=== PATIENT | female | born 2000 | race Caucasian/White ===

== ENCOUNTER → 2018-11-24 | Outpatient (CLI) | payer OTHER ==
--- NOTE | 2018-11-24 12:15 | USB ---
Reason for exam: clinical finding. Physical Findings: Nurse did not find any significant physical abnormalities on exam. US Breast RT Right complete breast ultrasound includes all four quadrants, the retroareolar region and axilla. Finding demonstrates no cystic or solid lesion seen. No suspicious sonographic finding. These results were verbally communicated with the patient and result sheet given to the patient on 11/24/18. ASSESSMENT: Negative, BI-RAD 1 RECOMMENDATION: Routine screening mammogram of both breasts at age 38. (or sooner if clinically indicated) Manage on a clinical basis with regard to chronic right nonfocal breast pain x 2 years.
== END ==
LOC: RADUSWWP 09:31
PROVIDERS: ATTEND Obstetrics & Gynecology Obstetrics
DX: N64.4 Mastodynia (principal)

== ENCOUNTER 2021-04-23 00:54 | Observation (INO) | payer OTHER ==
[2021-04-23] MEDS ORDERED: SODIUM CHLORIDE 0.9% 1,000 ML IV STA ×2 (01:02→02:52)
--- NOTE | 2021-04-23 01:03 | ED ---
Overdose HPI - General Stated Complaint: poss overdose Time Seen by Provider: 04/23/21 01:01 - Related Data Allergies Allergy/AdvReac Type Severity Reaction Status Date / Time No Known Allergies Allergy Verified 04/23/21 01:07 Review of Systems ROS Statement: Those systems with pertinent positive or pertinent negative responses have been documented in the HPI. ROS Other: All systems not noted in ROS Statement are negative. Course Vital Signs 04/23/21 01:02 Pulse Rate 69 Respiratory 14 Rate Blood Pressure 101/87 O2 Sat by Pulse 100 Oximetry Medical Decision Making - Lab Data Result diagrams: 04/23/21 01:29 04/23/21 01:29 Lab Results 04/23/21 04/23/21 Range/Units 01:29 01:29 WBC 6.7 (3.8-10.6) k/uL RBC 4.27 (3.80-5.40) m/uL Hgb 13.5 (11.4-16.0) gm/dL Hct 39.3 (34.0-46.0) % MCV 92.0 (80.0-100.0) fL MCH 31.7 (25.0-35.0) pg MCHC 34.5 (31.0-37.0) g/dL RDW 13.4 (11.5-15.5) % Plt Count 288 (150-450) k/uL MPV 7.2 Neutrophils % 57 % Lymphocytes % 34 % Monocytes % 4 % Eosinophils % 1 % Basophils % 1 % Neutrophils # 3.8 (1.3-7.7) k/uL Lymphocytes # 2.3 (1.0-4.8) k/uL Monocytes # 0.3 (0-1.0) k/uL Eosinophils # 0.1 (0-0.7) k/uL Basophils # 0.1 (0-0.2) k/uL Sodium 140 (137-145) mmol/L Potassium 3.5 (3.5-5.1) mmol/L Chloride 107 (98-107) mmol/L Carbon Dioxide 18 L (22-30) mmol/L Anion Gap 15 mmol/L BUN 5 L (7-17) mg/dL Creatinine 0.54 (0.52-1.04) mg/dL Est GFR (CKD-EPI)AfAm >90 (>60 ml/min/1.73 sqM) Est GFR (CKD-EPI)NonAf >90 (>60 ml/min/1.73 sqM) Glucose 114 H (74-99) mg/dL Calcium 8.6 (8.4-10.2) mg/dL Total Bilirubin 0.6 (0.2-1.3) mg/dL AST 36 (14-36) U/L ALT 22 (4-34) U/L Alkaline Phosphatase 65 (38-126) U/L Total Protein 7.9 (6.3-8.2) g/dL Albumin 4.7 (3.5-5.0) g/dL Lipase 39 (23-300) U/L Salicylates <1.0 mg/dL Acetaminophen <10.0 ug/mL Serum Alcohol 254 H* mg/dL - EKG Data -: EKG Interpreted by Me (EKG is bradycardia 56 CO 108 QRS 94 QTC 446) Disposition Clinical Impression: Alcoholic intoxication, Altered mental status Disposition: ADMITTED IP TO THIS HOSP Condition: Good Is patient prescribed a controlled substance at d/c from ED?: No Referrals: None,Stated [Primary Care Provider] - 1-2 days
[2021-04-23 01:48] LABS: Basophils # (A) 0.1 k/uL (0-0.2); Basophils % (A) 1 %; Eosinophils # (A) 0.1 k/uL (0-0.7); Eosinophils % (A) 1 %; HCT 39.3 % (34.0-46.0); HGB 13.5 gm/dL (11.4-16.0); Lymphocytes # (A) 2.3 k/uL (1.0-4.8); Lymphocytes % (A) 34 %; MCH 31.7 pg (25.0-35.0); MCHC 34.5 g/dL (31.0-37.0); Mean Platelet Volume 7.2; Monocytes # (A) 0.3 k/uL (0-1.0); Monocytes % (A) 4 %; Neutrophils # (A) 3.8 k/uL (1.3-7.7); Neutrophils % (A) 57 %; Platelet Count 288 k/uL (150-450); RBC 4.27 m/uL (3.80-5.40); RDW 13.4 % (11.5-15.5); WBC 6.7 k/uL (3.8-10.6)
[2021-04-23 02:01] LABS: ALT 22 U/L (4-34); AST 36 U/L (14-36); Acetaminophen <10.0 ug/mL; African American GFR (CKD) >90 (>60 ml/min/1.73 sqM); Albumin 4.7 g/dL (3.5-5.0); Alkaline Phosphatase 65 U/L (38-126); Anion Gap 15 mmol/L; Blood Urea Nitrogen 5 mg/dL (7-17); Calcium 8.6 mg/dL (8.4-10.2); Carbon Dioxide 18 mmol/L (22-30); Chloride 107 mmol/L (98-107); Glucose 114 mg/dL (74-99); Lipase 39 U/L (23-300); Non-African American GFR(CKD) >90 (>60 ml/min/1.73 sqM); Potassium 3.5 mmol/L (3.5-5.1); Salicylate <1.0 mg/dL; Sodium 140 mmol/L (137-145); Total Bilirubin 0.6 mg/dL (0.2-1.3); Total Protein 7.9 g/dL (6.3-8.2)
[2021-04-23 02:06] LABS: Alcohol 254 mg/dL
--- NOTE | 2021-04-23 02:47 | CT ---
EXAMINATION TYPE: CT brain cspine wo con DATE OF EXAM: 04/23/2021 COMPARISON: None HISTORY: Overdose CT DLP: 1302.2 mGycm Automated exposure control for dose reduction was used. Ventricles and sulci appear normal. There is no mass effect nor midline shift. There is no sign of in tracranial hemorrhage. No cerebral edema. The cervical vertebra have normal spacing and alignment. Posterior elements are intact. Facet joints are intact. Prevertebral soft tissues are intact. IMPRESSION: Negative CT scan of the cervical spine. Negative CT scan of the brain.
[2021-04-23] MEDS ORDERED: DEXTROSE 5%-0.45% NACL 1,000 ML IV ONE (02:52)
[2021-04-23] MEDS ORDERED: ONDANSETRON 4 MG/2 ML VIAL IVP PRN (02:53)
[2021-04-23] MEDS ORDERED: LORazepam 2 MG/ML INJ IV PRN (02:53)
[2021-04-23] MEDS ORDERED: NALOXONE 0.4 MG/ML 1 ML VIAL IV PRN (02:53)
--- NOTE | 2021-04-23 03:58 | P.HPIM ---
History of Present Illness H&P Date: 04/23/21 Patient [id number] female with a PMH of depression who presented to the emergency room with alcohol intoxication. The patient reports that she was out with her friends and had multiple shots and mixed drinks, after which she became severely intoxicated, at which point her friends called her mother who picked her up and brought her to the emergency room. The patient was tearful at time of interview as she was concerned regarding her excessive drinking episode. She reported feeling and denied any active complaints. She denied expressing chest discomfort, shortness of breath, fever, chills, cough, nausea, vomiting, abdominal pain, diarrhea. She reports drinking only every other weekend with her friends. Alcohol level in the emergency room was 254. Review of systems: Pertinent positives and negatives as discussed in HPI, a complete review of systems was performed and all other systems are negative. Physical examination: General: non toxic, no distress, appears at stated age, normal weight Derm: no unusual rashes/lesions no unusual ecchymoses, warm, dry Head: atraumatic, normocephalic, symmetric Eyes: EOMI, no lid lag, anicteric sclera, pupils equal round reactive to light ENT: Nose and ears atraumatic, no thrush, no pharyngeal erythema Neck: No thyromegaly, no cervical lymphadenopathy, trachea midline, supple Mouth: no lip lesion, mucus membranes moist Cardiovascular: S1S2 reg, no murmur, positive posterior tibial pulse bilateral, no edema, capillary refill less than 2 seconds Lungs: CTA bilateral, no rhonchi, no rales , no accessory muscle use Abdominal: soft, nontender to palpation, no guarding, no appreciable organomegaly, normal bowel sounds Ext: no gross muscle atrophy, muscle strength 5 out of 5 in all 4 extremities grossly, no contractures, Neuro: CN II-XI grossly intact, light touch intact all 4 extremities, finger to nose within normal limits, Psych: Alert, oriented, appropriate affect Assessment/plan Alcohol intoxication -C/w IVFs -Fall precautions -Denied taking any additional substances DVT prophylaxis -Heparin subq The patient is admitted with an anticipated less than 2 midnight stay for evaluation of EtOH intoxication CODE STATUS: Full Code Discussed with: Patient Anticipated discharge date: in am Anticipated discharge place: Home Past Medical History Past Medical History: No Reported History Past Surgical History: No Surgical Hx Reported Past Psychological History: Anxiety, Depression Smoking Status: Never smoker Past Alcohol Use History: Heavy Past Drug Use History: Marijuana Medications and Allergies Allergies Allergy/AdvReac Type Severity Reaction Status Date / Time No Known Allergies Allergy Verified 04/23/21 01:07 Physical Exam Vitals: Vital Signs Pulse Resp BP Pulse Ox 04/23/21 01:02 69 14 101/87 100 Intake and Output 04/22/21 04/22/21 04/23/21 14:59 22:59 06:59 Other: Weight 63.503 kg Results CBC & Chem 7: 04/23/21 01:29 04/23/21 01:29 Labs: Abnormal Lab Results - Last 24 Hours (Table) 04/23/21 Range/Units 01:29 Carbon Dioxide 18 L (22-30) mmol/L BUN 5 L (7-17) mg/dL Glucose 114 H (74-99) mg/dL Serum Alcohol 254 H* mg/dL
[2021-04-23] MEDS ORDERED: HEPARIN SODIUM,PORCINE/PF 5,000 UNIT/0.5 ML SYRINGE SQ SCH (08:00)
[2021-04-23 08:42] VITALS: BP 129/88; PULSE 76; RESP 18; TEMP 98.6
[2021-04-23] MEDS ORDERED: PANTOPRAZOLE 40 MG/10 ML VIAL IV SCH (09:00)
--- NOTE | 2021-04-23 12:40 | P.DS ---
Providers Date of admission: 04/23/21 02:53 Expected date of discharge: 04/23/21 Attending physician: Dahlia Parada MD Primary care physician: Stated None Hospital Course: Discharge Diagnosis: EtOH intoxication Alcohol abuse Depression Hospital Course: Patient is a very pleasant 20-year-old female with a past medical history of depression who presented to the hospital for alcohol intoxication. Patient reports that she does not drink on a daily basis and only drinks a couple of times a month may be on the weekend, but states she was out with her friends from work and had multiples along with mixed drinks resulting in significant intoxication. Patient's friends called the patient's mother picked her up and was very worried about her condition so she brought her to the emergency department for evaluation. In the emergency department patient was fully evaluated. Normal sinus rhythm at 56 bpm with no noted T-wave or ST abnormalities. A CT head and cervical spine was completed negative for acute process. Labs drawn revealing unremarkable CBC and CMP. Salicylates negative at less than 1.0, acetaminophen negative at less than 10.0, and a highly elevated serum alcohol level of 254. Patient was placed on continuous IV hydration and admitted under our services. Patient monitored overnight and until clinically sober. Once sober, patient was evaluated again and again she confirmed that she does not drink often and does not need any outpatient resources for alcohol use/abuse. Patient denied having any thoughts of self-harm or harm to others. Patient requesting discharge and called her mother for a ride home. Patient is medically stable for discharge at this time. Strongly educated on risks of alcohol abuse. Patient states she will not be drinking for a very long time. Physical examination: Vital signs reviewed and stable. General: Nontoxic, no distress and appears stated age. Derm: Skin warm and dry, normal coloration for ethnicity. Head: Atraumatic, normocephalic and symmetric. Eyes: EOMs intact, no lid lag, and anicteric sclera Mouth: no lip lesions, mucus membranes moist Cardiovascular: regular rate and rhythm with normal S1S2, no murmur, positive posterior tibial pulses bilaterally, and cap refill < 2 seconds. Lungs: Respirations even, regular, and unlabored on room air. Lungs CTA bilaterally, no rhonchi, no rales, no wheezing, and no accessory muscle usage. Abdominal: soft, nontender to palpation, no guarding, no appreciable organomegaly Ext: ROM intact. No gross muscle atrophy, no edema, no contractures Neuro: Speech clear, face symmetrical and CN II-XII grossly intact with no noted focal neuro deficits Psych: Alert and oriented to person, place, time, and situation. Appropriate and pleasant affect. A total of 31 minutes of time were spent preparing this complex discharge summary. Ronald Elaine NP rendered care for this patient independently, reviewed the findings and plan as documented in the note above. I did not physically speak with or examine the patient on this date. Patient Condition at Discharge: Good Plan - Discharge Summary Discharge Rx Participant: No New Discharge Prescriptions: Continue buPROPion XL [Wellbutrin XL] 150 mg PO DAILY Discharge Medication List buPROPion XL [Wellbutrin XL] 150 mg PO DAILY 04/23/21 [History] Follow up Appointment(s)/Referral(s): Jonathon Juárez MD [REFERRING] - As Needed Activity/Diet/Wound Care/Special Instructions: follow up as needed Discharge/Stand Alone Forms: AA Meetings [place], Outpatient Counseling Discharge Disposition: HOME SELF-CARE
== END 2021-04-23 14:10 | disposition home or self-care (01) ==
LOC: EC 00:54 → 6NMEDSUR 02:53
PROVIDERS: ADMIT Internal Medicine; ATTEND Internal Medicine
DX: F10.129 Alcohol abuse with intoxication, unspecified (principal); F32.A Depression, unspecified; F41.9 Anxiety disorder, unspecified; R00.1 Bradycardia, unspecified; Y90.8 Blood alcohol level of 240 mg/100 ml or more; Z71.41 Alcohol abuse counseling and surveillance of alcoholic
CPT/HCPCS: 96372; 96374; 96361; 99285; 36415; 93005; 80053; 83690; 85025; 80143; 80320; 80179; 72125; 70450; G0378; C9113; J1644

== ENCOUNTER → 2024-01-27 | Outpatient (CLI) | payer OTHER ==
--- NOTE | 2024-01-27 17:05 | XR ---
EXAMINATION TYPE: XR pelvis AP view DATE OF EXAM: 01/27/2024 4:47 PM COMPARISON: None CLINICAL INDICATION: Female, 23 years old with history of SLIP AND FALL; pain [facility] TECHNIQUE: XR pelvis AP view, examined in a single projection. FINDINGS: There is no evidence of fracture or dislocation. There is no soft tissue abnormality. No a bnormal calcifications are present. The spine appears intact. The hips appear intact. No significant degeneration. IMPRESSION: No acute osseous pathology. [facility], , 01/27/2024 5:03 PM
--- NOTE | 2024-01-27 17:06 | XR ---
EXAMINATION TYPE: XR lumbar spine 2 or 3V DATE OF EXAM: 01/27/2024 4:47 PM COMPARISON: None CLINICAL INDICATION: Female, 23 years old with history of SLIP AND FALL, pain TECHNIQUE: XR lumbar spine 2 or 3V - Frontal, lateral and coned in L5-S1 lateral views of the spine. FINDINGS: No evidence of any acute osseous pathology. No evidence of loss of vertebral body height i s seen. There is normal alignment of the lumbar vertebral bodies. No significant degeneration changes throughout the spine. IMPRESSION: 1. No acute fracture. [facility], , 01/27/2024 5:04 PM
--- NOTE | 2024-01-27 17:06 | XR ---
EXAMINATION TYPE: XR femur RT DATE OF EXAM: 01/27/2024 4:47 PM COMPARISON: None CLINICAL INDICATION: Female, 23 years old with history of SLIP AND FALL; PHH, pain TECHNIQUE: XR femur RT examined in Frontal and lateral projections. FINDINGS: No evidence of acute osseous pathology, joint dislocation, or soft tissue swelling IMPRESSION: No acute osseous pathology. [facility], , 01/27/2024 5:04 PM
== END | disposition home or self-care (01) ==
LOC: RADXRMAIN 16:23
PROVIDERS: ATTEND Emergency Medicine
DX: S30.0XXA Contusion of lower back and pelvis, initial encounter (principal); S70.11XA Contusion of right thigh, initial encounter
CPT/HCPCS: 72100; 72170